=== PATIENT | male | born 1945 | race Caucasian/White ===

== ENCOUNTER → 2018-05-13 17:55 | Day surgery (SDC) | payer MEDICARE ==
--- NOTE | 2018-05-11 13:53 | HP ---
AMENDED REPORT NOW INCLUDES COSIGNER DESIGNATION - ESIGNED BEFORE ADJUSTMENT CC: Dr. Bonilla; Dr. Betancourt at [facility] * ADMISSION HISTORY AND PHYSICAL: DATE OF ADMISSION: 05/13/18 ATTENDING SURGEON: Dr. Coyd Gentile.* (DICTATED BY JHONATAN JACQUES) CHIEF COMPLAINT: Left inguinal hernia. HISTORY OF PRESENT ILLNESS: This is a 72-year-old male, referred by Dr. Bartholomew for evaluation of a left inguinal hernia. Per Dr. Gentile's history, the patient has had a left inguinal bulge for quite some time. This has become increasingly symptomatic particularly toward the end of the day and when he has been spending much time bending over. He denies any significant change in GI or habits (he is treated for BPH). He denies any symptoms to suggest incarceration or strangulation. He was seen in the office by Dr. Gentile on 05/04, at which time exam confirmed the presence of a reducible left inguinal hernia. Also noted were diastasis recti and a small nontender umbilical hernia. There was no hernia noted on the right. Dr. Gentile has discussed with the patient the indications for surgery, the risks, benefits, and alternatives. The patient understands the expected perioperative course and would like to proceed as scheduled with laparoscopic repair of left inguinal hernia with mesh. PAST MEDICAL HISTORY: BPH. The patient reports occasional arrhythmia ( sensation of a skipped beat or rapid rhythm, which typically resolves with a modified Valsalva maneuver and is not associated with any symptoms such as chest pain, lightheadedness, or shortness of breath). He also has had recent symptom of tremor and some speech hesitancy and was recently evaluated by the neurologist (Dr. Betancourt). There are some additional tests including MRI that are pending. It is anticipated that he may be initiated on medication on a trial basis, but that that will occur a week or more after his planned surgery. He otherwise denies history of heart disease, hypertension, asthma, COPD, diabetes , or personal history of cancer. PAST SURGICAL HISTORY: His only prior surgery was reduction of the nasal fracture at age 7. CURRENT MEDICATIONS: Alfuzosin extended release 10 mg once daily. DRUG ALLERGIES: None known. FAMILY HISTORY: Positive for DVT in his mother and negative for any known history of anesthesia problems or bleeding disorders. SOCIAL HISTORY: The patient is . 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 He denies use of tobacco or recreational drugs and drinks alcohol rarely. REVIEW OF SYSTEMS: General: No recent constitutional symptoms or acute illnesses. Weight has been stable. HEENT: No problems reported. Cardiovascular: No chest pain. He states that the arrhythmia symptoms that he has will occur approximately once monthly and that he was evaluated many years ago by Dr. Gutierrez with a negative stress test at that time. There have been no significant associated symptoms. A preoperative baseline EKG will be obtained prior to his upcoming surgery. Respiratory: No history of chronic cough or shortness of breath. GI: No problems reported. He has not had a colonoscopy and apparently was not interested in same. : He is followed by Dr. Bartholomew for BPH. Endocrine: No diabetes or thyroid dysfunction. Neurological: He was recently evaluated by Dr. 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 Remainder of review of systems is negative. PHYSICAL EXAMINATION GENERAL: Well-nourished, well-developed male, in no acute distress. VITAL SIGNS: Height 71.5 inches, weight 175 pounds. Temperature 98.3, blood pressure 128/80, pulse 72, respirations 16. HEENT: Pupils equal and round, reactive. EOMs intact. No conjunctival pallor. Oropharynx: Teeth in good repair. No intraoral lesions. NECK: No lymphadenopathy, thyromegaly, or masses. LUNGS: Clear to auscultation. No rales or wheezes. HEART: Regular rate and rhythm. No murmur noted. ABDOMEN: Diastasis is noted. Per Dr. Gentile's exam, small umbilical hernia as well as reducible left inguinal hernia (not reexamined today). The remainder of the abdomen is soft and without tenderness or masses. BACK: No spinous process or CVA tenderness. GENITALIA: Not examined. RECTAL: Not done. EXTREMITIES: No edema. NEUROLOGICAL: He does have some hesitancy with his speech and some general stiffness with gross movements. Further neurological testing was not done today (see separate consult from Dr. Betancourt). SKIN: Warm and dry. No suspicious rashes or lesions noted. IMPRESSION: Left inguinal hernia. PLAN: Laparoscopic repair of left inguinal hernia with mesh. JHONATAN JACQUES [id number]/[facility] #: [id number] BELLEVUE HOSPITALBautista
[~2018-05-13 17:55] MED LIST: Atropine 1MG/ML INJ* 1 ML VIAL ONE; Buffered Lidocaine 0.9% SYRIN* 5 ML/SYR SYRINGE INTRADERM ONE; Bupivacaine 0.25% EPI 200,000* 30 ML SDV ONE; Dexamethasone IV* 4 MG/ML 1 ML (4 MG) IV SLOW PU ONE; Dexamethasone IV* 4 MG/ML 1 ML (4 MG) ONE; DiMENhydriNATE IV* 50 MG/ML VIAL IV PUSH PRN; Famotidine IV* 10 MG/ML 2 ML (20 mg) IV ONE; Famotidine IV* 10 MG/ML 2 ML (20 mg) ONE; Glycopyrrolate IV* 0.2 MG/ML 1 ML VIAL ONE; Ketorolac INJ* 30 MG/ML 1 ML VIAL ONE; Lidocaine 2% PF * 5 ML VIAL ONE; Midazolam* 1 MG/ML 5 ML VIAL (5 MG) ONE; Naloxone* 0.4 MG/ML 1 ML VIAL IV PRN; Ondansetron INJ* 2 MG/ML VIAL IV PRN; Ondansetron INJ* 2 MG/ML VIAL ONE; Propofol* 10 MG/ML 20 ML BTL IV PUSH ONE; Succinylcholine* 20 MG/ML 10 ML VIAL ONE; ceFAZolin 2 GM PREMIX in ORs 2 GM/50 ML BAG IVPB ONE; fentaNYL* 50 MCG/ML 2 ML VIAL (100 MCG VIAL) IV PRN; fentaNYL* 50 MCG/ML 5 ML VIAL (250 MCG VIAL) ONE; oxyCODONE/Acetamin 5/325 MG* TAB PO PRN
--- NOTE | 2018-05-13 19:45 | OP ---
Operative Report - Blank - Operative Report Date of Operation: 05/13/18 Note: Brief Operative Note Preop Dx: Left Inguinal Hernia Postop Dx: same; direct Procedure: Laparoscopic repair LIH w/ mesh Anesthesia: GET Surgeon: Seferino Circuit Breaker Supervisor: JHONATAN Cardona Fluids: 1 liter LR EBL: none Specimen: none Drains: none Findings: dictated
[2018-05-13 20:27] VITALS: BP 145/88
--- NOTE | 2018-05-15 04:19 | OP ---
CC: Primary Care Doctor; [facility] OPERATIVE REPORT: DATE OF OPERATION: 05/14/18 DATE OF : 43 SURGEON: Cody Gentile MD REMELTER: JHONATAN Vega ANESTHESIOLOGIST: Arvind Zhang MD ANESTHESIA: General. PRE-OP DIAGNOSIS: Left inguinal hernia. POST-OP DIAGNOSIS: Left inguinal hernia. OPERATIVE PROCEDURE: Laparoscopic left inguinal hernia repair with mesh. FLUIDS: 1 L of crystalloid fluid given. BLOOD LOSS: Minimal. SPECIMEN: None. DRAINS: None. DESCRIPTION OF PROCEDURE: The patient was identified in the preoperative area. He was marked approp riately identifying the left inguinal area. He was then brought to the operating room and placed on the operating table in a supine position. Preoperative antibiotics were given. Sequential devices we re placed on bilateral lower extremities and general anesthesia was induced. Abdominal hair was clipped and the area was prepped and draped in a standard surgical fashion. A sean e-out was performed. An infraumbilical incision was made. This was deepened down to the anterior fascia on the left. Thi s was incised and the rectus pillar retracted laterally. This allowed us to get into the preperitone al plane and blunt dissection was carried out with surgeon's finger freeing up the area of the lower abdomen. Next, a 12-mm trocar was inserted through this, which then allowed our preperitoneal plane to insuffl ate to a pressure of 12 mmHg. Laparoscope was inserted through this and then additional blunt dissec tion with camera was performed right down to the pubic symphysis. Two 5-mm trocars were then inserted in the lower midline. The first one appeared to possibly cause s ome injury to the peritoneum as it came in because this promptly led to a moderate amount of pneumope ritoneum. Next, with the two 5-mm trocars in, we were able to free up both Trev's ligament on the left and ri ght as well as the pubic symphysis. A large direct hernia was noted on the left. This was dissected free and the defect was approximately 3 cm. Next, the lateral groin area on the left was cleared off at Bogros space and the epigastric vessels w ere maintained anteriorly. The spermatic structures were isolated. There was no evidence of an xenia rect hernia. Next, with the preperitoneal plane wide open and the hernia defect isolated with no contents, we then placed a Bard 3D large mesh into the space. This was tacked at the Trev's ligament on the left an d just above the pubic symphysis as well as laterally, it covered the floor of myopectineal orifice. The peritoneal plane was allowed to collapse of its air and the trocars were removed. Attention was turned towards the umbilical incision. The posterior fascia was incised and peritoneum opened up and allowed the additional air to collapse. There was no fluid in this site and I felt th at it was good to close this area. We closed with 0 Polysorb suture at the posterior fascia and then again at the anterior fascia with a [id number] 0 Polysorb suture. The incisions were then all reapproximated with 4-0 Monocryl subcuticular sutures. Steri-Strips and sterile dressings were appli ed. [id number]/[facility] #: [id number]
== END | disposition home or self-care (01) ==
LOC: OR 17:55
PROVIDERS: ATTEND Surgery
DX: K40.90 Unilateral inguinal hernia, without obstruction or gangrene, not specified as recurrent (principal); R25.1 Tremor, unspecified; R00.2 Palpitations
CPT/HCPCS: C1781; J0330; J0461; J0690; J1100; J1885; J2250; J2405; J2704; J3010